=== PATIENT | female | born 1955 | race Caucasian/White ===

== ENCOUNTER 2019-04-09 21:46 | Emergency (ER) | payer OTHER ==
[2019-04-09] MEDS ORDERED: Aspirin 81 MG Tab.Chew PO ONE (21:51)
[2019-04-09] MEDS ORDERED: Nitroglycerin 0.4 MG Tab.SL ONE (21:53)
[2019-04-09] MEDS ORDERED: Aspirin 81 MG Tab.EC ONE (21:53)
[2019-04-09] MEDS: Nitroglycerin 0.4 MG Tab.SL SL PRN ×3 (22:00→22:18)
--- NOTE | 2019-04-09 22:10 | EDM.PDOC ---
ED HPI GENERAL MEDICAL PROBLEM - General Chief Complaint: General Stated Complaint: left shoulder pain Time Seen by Provider: 04/09/19 21:51 Source of Information: Reports: Patient, Significant Other History Limitations: Reports: No Limitations - History of Present Illness INITIAL COMMENTS - FREE TEXT/NARRATIVE: Patient presents with pain in left proximal neck, left shoulder and pain and tightness in left chest. This started at about 7:20 pm while she was sitting. It waxed and waned somewhat but progressively worsened. She denies any history of heart problems. She denies any lifting or other activity that she thinks would have caused this. She took two regular Maya aspirin at home after this started. Left Shoulder Pain Score (Numeric/FACES): 9 - Related Data Allergies Allergy/AdvReac Type Severity Reaction Status Date / Time No Known Drug Allergies Allergy Other Verified 04/09/19 22:04 Home Meds: Home Meds Aspirin [Halfprin] 81 mg PO DAILY 04/09/19 [History] Meloxicam 7.5 mg PO DAILY PRN 04/09/19 [History] Rosuvastatin Calcium 20 mg PO DAILY 04/09/19 [History] Telmisartan 80 mg PO DAILY 04/09/19 [History] hydrOXYzine HCl [hydrOXYzine] 25 mg PO Q6H PRN 04/09/19 [History] metFORMIN HCl [Metformin HCl] 500 mg PO BID 04/09/19 [History] ED ROS GENERAL - Review of Systems Review Of Systems: See Below Constitutional: Denies: Fever, Chills, Malaise, Weakness, Diaphoresis HEENT: Denies: Vision Change Respiratory: Denies: Shortness of Breath, Cough Cardiovascular: Reports: Chest Pain. Denies: Lightheadedness, Syncope GI/Abdominal: Denies: Abdominal Pain, Nausea : Reports: No Symptoms Musculoskeletal: Reports: Neck Pain, Shoulder Pain. Denies: Arm Pain, Back Pain , Hand Pain, Leg Pain, Foot Pain Skin: Denies: Cyanosis, Jaundice, Mottled, Pallor, Diaphoresis Neurological: Denies: Confusion, Dizziness, Headache, Seizure, Syncope, Trouble Speaking, Difficulty Walking Psychiatric: Denies: Agitation, Anxiety, Confusion ED EXAM, GENERAL - Physical Exam Exam: See Below Exam Limited By: No Limitations General Appearance: Alert, WD/WN, No Apparent Distress Eye Exam: Bilateral Eye: EOMI, Normal Inspection, PERRL Ears: Normal External Exam, Hearing Grossly Normal Nose: Normal Inspection, No Blood Throat/Mouth: Normal Inspection, Normal Lips, Normal Voice, No Airway Compromise Head: Atraumatic, Normocephalic Neck: Normal Inspection, Supple, Non-Tender (pain not reproducible with palpation but is located medial and deep to the left clavicle), Full Range of Motion Respiratory/Chest: No Respiratory Distress, Lungs Clear, Normal Breath Sounds, No Accessory Muscle Use Cardiovascular: Normal Peripheral Pulses, Regular Rate, Rhythm, No JVD, No Murmur Peripheral Pulses: 2+: Carotid (L), Carotid (R), Radial (L), Radial (R), Posterior Tibial (L), Posterior Tibial (R) GI/Abdominal: Normal Bowel Sounds, Soft, Non-Tender, No Organomegaly, No Distention Back Exam: Normal Inspection, Full Range of Motion. No: CVA Tenderness (L), CVA Tenderness (R) Extremities: Normal Inspection, Normal Range of Motion, Non-Tender, No Pedal Edema, Normal Capillary Refill Neurological: Alert, Oriented, Normal Cognition, No Motor/Sensory Deficits Psychiatric: Normal Affect, Normal Mood Skin Exam: Warm, Dry, Intact, Normal Color, No Rash Course - Vital Signs Last Recorded V/S: Last Vital Signs Temp 98.4 F 04/09/19 21:47 Pulse 80 04/09/19 21:47 Resp 20 04/09/19 21:47 BP 160/64 H 04/09/19 22:18 Pulse Ox 92 L 04/09/19 21:47 - Orders/Labs/Meds Orders: Active Orders 24 hr Category Date Time Status EKG Documentation Completion [RC] ASDIRECTED Care 04/09/19 21:52 Ordered CXR [Chest 1V Frontal] [CR] Stat Exams 04/09/19 22:12 Ordered EKG 12 Lead [EK] Routine Ther 04/09/19 21:52 Ordered Labs: Laboratory Tests 04/09/19 04/09/19 Range/Units 22:05 22:05 WBC 6.16 (5.00-10.00) 10^3/uL RBC 3.58 L (3.80-5.50) 10^6/uL Hgb 12.0 (12.0-16.0) g/dL Hct 33.6 L (37.0-47.0) % MCV 93.9 H (82.0-92.0) fL MCH 33.5 H (27.0-31.0) pg MCHC 35.7 (32.0-36.0) g/dL RDW 12.1 (11.5-14.5) % Plt Count 161 (150-400) 10^3/uL MPV 11.6 H (7.4-10.4) fL Immature Gran % (Auto) 0.2 (0.0-5.0) % Neut % (Auto) 52.0 (50.0-70.0) % Lymph % (Auto) 35.6 (20.0-40.0) % Wheeler % (Auto) 7.8 (2.0-8.0) % Eos % (Auto) 3.9 H (1.0-3.0) % Baso % (Auto) 0.5 (0.0-1.0) % Immature Gran # (Auto) 0.01 (0.00-0.50) 10^3/uL Neut # (Auto) 3.21 (2.50-7.00) 10^3/uL Lymph # (Auto) 2.19 (1.00-4.00) 10^3/uL Wheeler # (Auto) 0.48 (0.10-0.80) 10^3/uL Eos # (Auto) 0.24 (0.10-0.30) 10^3/uL Baso # (Auto) 0.03 (0.00-0.10) 10^3/uL Sodium 144 (136-145) mmol/L Potassium 4.7 (3.3-5.3) mmol/L Chloride 101 (98-115) mmol/L Carbon Dioxide 27.1 (21.0-32.0) mmol/L Anion Gap 20.6 H (5-15) mmol/L BUN 19 (6-25) mg/dL Creatinine 0.79 (0.51-1.17) mg/dL Est Cr Clr Drug Dosing 57.65 mL/min Estimated GFR (MDRD) > 60 mL/min Glucose 146 H (75 - 99) mg/dL Calcium 9.5 (8.7-10.3) mg/dL Total Bilirubin 0.5 (0.2-1.0) mg/dL AST 54 H (15-37) U/L ALT 77 (12-78) U/L Alkaline Phosphatase 86 (46-116) IU/L Troponin I < 0.04 (0.00-0.070) ng/mL Total Protein 7.5 (6.4-8.2) g/dL Albumin 4.06 (3.00-4.80) g/dL Meds: Medications Discontinued Medications Generic Name Dose Route Start Last Admin Trade Name Fretanisha PRN Reason Stop Dose Admin Aspirin 324 mg 04/09/19 21:51 04/09/19 21:57 Aspirin PO 04/09/19 21:52 324 mg ONETIME ONE Administration Aspirin Confirm 04/09/19 21:53 04/09/19 22:25 Halfprin Administered 04/09/19 21:54 Not Given Dose 324 mg .ROUTE .STK-MED ONE Nitroglycerin 0.4 mg 04/09/19 21:51 04/09/19 22:18 Nitrostat SL 0.4 mg Q5M PRN Administration Chest Pain Nitroglycerin Confirm 04/09/19 21:53 04/09/19 22:25 Nitrostat Administered 04/09/19 21:54 Not Given Dose 0.4 mg .ROUTE .STK-MED ONE Nitroglycerin 1 gm 04/09/19 23:12 04/09/19 23:16 Nitro-Bid 2% TOP 04/09/19 23:13 1 gm ONETIME ONE Administration - Re-Assessments/Exams Free Text/Narrative Re-Assessment/Exam: 04/09/19 22:13 Pain was 9 at arrival and dropped to 3-4 after aspirin and 1st does of nitro sl. After 5 minutes another nitro was given. EKG shows no ST changes or T-wave changes. 04/09/19 22:40 After 3rd nitro pain is down to 1. CXR is normal without widened mediastinum. 04/09/19 23:19 Trop is negative. I discussed case with Dr. Veronica MONTAÑO at [facility] who accepted for transfer and cardiology consult. Patient is stable but the pain is starting to go up a little bit again. Nitro paste is applied. BP is good. Discussed findings and recommendations with patient and her who agree with plan. Departure - Departure Time of Disposition: 23:22 Disposition: DC/Tfer to Acute Hospital 02 Condition: Good Clinical Impression: Unstable angina, ACS (acute coronary syndrome) - Discharge Information Forms: ED Department Discharge - My Orders Last 24 Hours: My Active Orders 04/09/19 21:52 EKG Documentation Completion [RC] ASDIRECTED EKG 12 Lead [EK] Routine 04/09/19 22:12 CXR [Chest 1V Frontal] [CR] Stat - Assessment/Plan Last 24 Hours: My Active Orders 04/09/19 21:52 EKG Documentation Completion [RC] ASDIRECTED EKG 12 Lead [EK] Routine 04/09/19 22:12 CXR [Chest 1V Frontal] [CR] Stat
[2019-04-09 22:43] LABS: ANION GAP 20.6 mmol/L (5-15); CHLORIDE,CL 101 mmol/L (98-115); SODIUM,NA 144 mmol/L (136-145)
[2019-04-09] MEDS ORDERED: Nitroglycerin 2% Oint 1 GM UD Packet TOP ONE (23:12)
--- NOTE | 2019-04-10 08:09 | CR ---
[id number] RAD/RAD Chest PA or AP 1V EXAM: SINGLE VIEW CHEST. INDICATION: CHEST PAIN COMPARISON: NO PREVIOUS SIMILAR EXAM IS AVAILABLE FINDINGS: The lungs are clear. There is no pneumothorax. The cardiomediastinal contour is mildly prominent. The regional bones and soft tissues are unremarkable. IMPRESSION: NO ACUTE PROCESS Shankar Tracy MD 04/10/19 0809 Thank you for allowing us to participate in the care of your patient.
== END 2019-04-09 23:30 ==
LOC: KA.ED 21:46
DX: I24.9 Acute ischemic heart disease, unspecified (principal); Z79.82 Long term (current) use of aspirin; Z79.899 Other long term (current) drug therapy
CPT/HCPCS: 71045; 80053; 84484; 85025; 93005; 99285-25; A9270-GY